=== PATIENT | female | born 1975 | race Caucasian/White ===

== ENCOUNTER 2021-04-12 13:22 | Outpatient (CLI) | payer OTHER ==
[2021-04-12] MEDS ORDERED: EPINEPHrine 1 MG/ML AMP ONE (13:49)
[2021-04-12] MEDS ORDERED: Sodium Bicarbonate 2.5 MEQ/5 ML VIAL ONE (13:49)
[2021-04-12] MEDS ORDERED: Lidocaine 1% PF 5 ML VIAL ONE (13:50)
== END 2021-04-12 13:23 | disposition home or self-care (01) ==
LOC: CSHRAD 13:22
PROVIDERS: ATTEND Orthopaedic Surgery
DX: M24.811 Other specific joint derangements of right shoulder, not elsewhere classified (principal); M75.111 Incomplete rotator cuff tear or rupture of right shoulder, not specified as traumatic; S43.51XA Sprain of right acromioclavicular joint, initial encounter; M89.511 Osteolysis, right shoulder; M25.411 Effusion, right shoulder
CPT/HCPCS: 23350; J0171